=== PATIENT | male | born 1985 | race Caucasian/White ===

== ENCOUNTER 2022-04-03 17:08 | Emergency (ER) | payer OTHER, SELFPAY ==
[2022-04-03 17:35] VITALS: BP 121/85; PULSE 98; RESP 18; TEMP 36.9; O2SAT 97
--- NOTE | 2022-04-03 21:40 | W.ED.GENADLT ---
Documented by User: Juan Jose Figueroa MD 04/03/22 22:34 HPI - General Adult General: Chief complaint: Fall Stated complaint: Fell off ladder, Back pain Time Seen by Provider: 04/03/22 21:30 History of Present Illness: Patient is a 36-year-old male who fell from 4 feet of ladder presents the emergency room after falling from a ladder about 4 feet high. Patient reports he really landed on his right side. Patient noted minor bleeding over the right anterior ortega. Patient was right ankle, right leg, right knee, right elbow, forearm and rib area pain. Patient denies LOC or anticoagulation. No nausea/vomiting, fever/chill, chest pain, shortness of breath, abdominal pain, dysuria/hematuria/polyuria, diarrhea/melena/hematochezia. Patient tells me that he is up-to-date with his tetanus vaccines. Onset:4pm Duration:ongoing Location:home Severity:moderate Associated symptoms: Reports chest pain (+R sided rib pain); Deny dyspnea, nausea, rash, palpitations or vomiting Review of Systems Const: Denies: fever(s) or chills Eyes: Denies: change in vision ENMT: Denies: mouth pain Card: Reports: chest pain (+R sided rib pain); Denies: palpitations Resp: Denies: dyspnea or non-productive cough GI: Denies: abdominal pain, nausea, vomiting or diarrhea : Denies: dysuria Musc: Reports: extremity pain (+ Right knee, right leg, right ankle, right elbow, right forearm, right rib) Skin/Breast: Denies: rash or new lesions Neuro: Denies: weakness in extremities Psych: Reports: other (Normal mood) Bobby/Lymph: Denies: easy bruising PFSH ED PFSH: Medical History No pertinent past medical history Social History Smoking and tobacco status: never smoked Alcohol intake: never Substance/Drug Use: never Physical Exam Const: COMMON NORMALS: alert HENMT: COMMON NORMALS: atraumatic HEAD & SCALP: atraumatic MOUTH: moist mucous membranes not abnormal Eye: COMMON NORMALS: EOMs intact bilaterally and conjunctivae normal CONJUNCTIVA: Yes conjunctivae normal Neck/C-Spine: COMMON NORMALS: full ROM and supple Resp: COMMON NORMALS: normal respiratory effort and clear to auscultation bilaterally AUSCULTATION: clear to auscultation bilaterally Cardio: COMMON NORMALS: regular rate RATE: regular rate GI: COMMON NORMALS: Soft to palpation and non-tender PALPATION: Yes Soft to palpation Extremity: COMMON NORMALS: full ROM Neuro: SENSORIUM/ORIENTATION: Yes alert MOTOR EXAM: No Abnormal motor strength present and Other motor observations present (no focal motor deficits) Psych: COMMON NORMALS: speech normal SPEECH: Yes normal speech MOOD & AFFECT: Yes euthymic mood Course Vital Signs: Vital signs: Vital Signs Temperature 98.5 F 04/03/22 17:35 Pulse Rate 98 04/03/22 17:35 Respiratory Rate 18 04/03/22 17:35 Blood Pressure 121/85 04/03/22 17:35 Pulse Oximetry 97 04/03/22 17:35 MDM - General Adult Lab Data Radiology Impressions Ankle X-Ray 04/03/22 21:41 IMPRESSION: Distal Achilles tendon degenerative calcification. Chest X-Ray 04/03/22 21:41 IMPRESSION: 1. Negative for infiltrate. 2. Left mid lung 9.5 mm pulmonary nodule, dedicated nonemergent chest CT advised for further evaluation. Elbow X-Ray 04/03/22 21:41 IMPRESSION: Small joint effusion suspected, which can be associated with an occult radial head fracture, no fracture is seen on this exam, a CT could further evaluate this. Knee X-Ray 04/03/22 21:41 IMPRESSION: 1. Two orthopedic screws seen in the proximal tibial metaphysis. 2. Moderate tricompartmental osteoarthritis of the knee. Ribs X-Ray 04/03/22 21:41 IMPRESSION: No acute findings. Foot X-Ray 04/03/22 21:57 IMPRESSION: No acute findings. Forearm X-Ray 04/03/22 21:57 IMPRESSION: Radial head comminuted mildly displaced fracture. Tibia/Fibula X-Ray 04/03/22 21:57 IMPRESSION: Two orthopedic screws seen in the proximal tibial metaphysis. Discharge Plan Discharge Patient Disposition: Home Clinical Impression: Fall Closed fracture of radial head Qualifiers: Encounter type: initial encounter Fracture alignment: nondisplaced Laterality: right Qualified Code(s): S52.124A - Nondisplaced fracture of head of right radius, initial encounter for closed fracture Condition: Stable Prescriptions: New hydrocodone-acetaminophen 5-325 mg tablet 1 tab PO Q8H PRN (Reason: pain (scale score 7-10)) Qty: 7 0RF Discharge Orders: Discharge ED (Routine); Ordered 04/03/22 Ordered By: John Vickers Discharge Diet: Advance as tolerated Discharge Activity: Increase activity as tolerated Patient Instructions: Fall Prevention (ED) Activity Restrictions/Additional Instructions: Home and rest. Use sling for comfort. Acetaminophen and ibuprofen for pain. Activity as tolerated. Follow-up with orthopedist of choice when you return home to [place] for further evaluation and treatment. Use ice packs for further comfort. Return to ER for new concerns. Follow-up with primary care for abnormal chest x-ray. Stand Alone Forms: Work/School Release Coding Level of Care Code ED Compound Machine Operator for Chg Fwd Exam Comprehensive Documented by User: LUISA Iraheta 04/04/22 00:07 HPI - General Adult General: Chief complaint: Fall Stated complaint: Fell off ladder, Back pain Time Seen by Provider: 04/03/22 21:30 [facility] ED PFSH: Medical History No pertinent past medical history Social History Smoking and tobacco status: never smoked Alcohol intake: never Substance/Drug Use: never Course Vital Signs: Vital signs: Vital Signs Temperature 98.5 F 04/03/22 17:35 Pulse Rate 98 04/03/22 17:35 Respiratory Rate 18 04/03/22 17:35 Blood Pressure 121/85 04/03/22 17:35 Pulse Oximetry 97 04/03/22 17:35 MDM - General Adult Medical Decision Making 36-year-old male patient comes in today after falling off a ladder while at work. 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 Patient complained of right elbow and chest discomfort. Respirations were even lungs were clear to auscultation. Abdomen soft nontender. Tenderness was noted to the elbow with inability to straighten due to pain. I received this patient from Dr. Figueroa while we were awaiting final x-ray results. X-rays were noted to have no abnormalities except for a mildly displaced radial head fracture. There was also incidental finding of abnormality of the chest x-ray. Patient was recommended to follow-up with orthopedist for further evaluation. Also recommended patient follow-up with his primary care regarding abnormality on chest film. Lab Data Radiology Impressions Ankle X-Ray 04/03/22 21:41 IMPRESSION: Distal Achilles tendon degenerative calcification. Chest X-Ray 04/03/22 21:41 IMPRESSION: 1. Negative for infiltrate. 2. Left mid lung 9.5 mm pulmonary nodule, dedicated nonemergent chest CT advised for further evaluation. Elbow X-Ray 04/03/22 21:41 IMPRESSION: Small joint effusion suspected, which can be associated with an occult radial head fracture, no fracture is seen on this exam, a CT could further evaluate this. Knee X-Ray 04/03/22 21:41 IMPRESSION: 1. Two orthopedic screws seen in the proximal tibial metaphysis. 2. Moderate tricompartmental osteoarthritis of the knee. Ribs X-Ray 04/03/22 21:41 IMPRESSION: No acute findings. Foot X-Ray 04/03/22 21:57 IMPRESSION: No acute findings. Forearm X-Ray 04/03/22 21:57 IMPRESSION: Radial head comminuted mildly displaced fracture. Tibia/Fibula X-Ray 04/03/22 21:57 IMPRESSION: Two orthopedic screws seen in the proximal tibial metaphysis. Discharge Plan Discharge Patient Disposition: Home Clinical Impression: Fall Closed fracture of radial head Qualifiers: Encounter type: initial encounter Fracture alignment: nondisplaced Laterality: right Qualified Code(s): S52.124A - Nondisplaced fracture of head of right radius, initial encounter for closed fracture Condition: Stable Prescriptions: New hydrocodone-acetaminophen 5-325 mg tablet 1 tab PO Q8H PRN (Reason: pain (scale score 7-10)) Qty: 7 0RF Discharge Orders: Discharge ED (Routine); Ordered 04/03/22 Ordered By: John Vickers Discharge Diet: Advance as tolerated Discharge Activity: Increase activity as tolerated Patient Instructions: Fall Prevention (ED) Activity Restrictions/Additional Instructions: Home and rest. Use sling for comfort. Acetaminophen and ibuprofen for pain. Activity as tolerated. Follow-up with orthopedist of choice when you return home to [place] for further evaluation and treatment. Use ice packs for further comfort. Return to ER for new concerns. Follow-up with primary care for abnormal chest x-ray. Stand Alone Forms: Work/School Release Coding Level of Care Code ED Compound Machine Operator for Leoncio Fwd Exam Comprehensive
--- NOTE | 2022-04-03 21:41 | XRR_ITS ---
PROCEDURE INFORMATION: Exam: XR Right Ankle Exam date and time: 04/03/2022 10:18 PM Age: 36 years old Clinical indication: Pain; Ankle; Right; Additional info: R ankle pain TECHNIQUE: Imaging protocol: Radiologic exam of the Right ankle. Views: 3 or more views. COMPARISON: CR (LOW EXM, ) 04/03/2022 10:15 PM FINDINGS: Bones/joints: Normal. Soft tissues: Distal Achilles tendon degenerative calcification. XR/XR ankle RT min 3V* [id number] IMPRESSION: Distal Achilles tendon degenerative calcification.
--- NOTE | 2022-04-03 21:41 | XRR_ITS ---
PROCEDURE INFORMATION: Exam: XR Right Ribs Exam date and time: 04/03/2022 10:00 PM Age: 36 years old Clinical indication: Chest wall pain; Right; Additional info: R rib pain TECHNIQUE: Imaging protocol: Radiologic exam of the Right ribs. Views: 2 views. COMPARISON: CR (CHEST, ) 04/03/2022 9:51 PM FINDINGS: Bones/joints: Normal. Soft tissues: Normal. XR/XR ribs RT 2V* [id number] IMPRESSION: No acute findings.
--- NOTE | 2022-04-03 21:41 | XRR_ITS ---
PROCEDURE INFORMATION: Exam: XR Right Elbow Exam date and time: 04/03/2022 10:05 PM Age: 36 years old Clinical indication: Pain; Elbow; Right; Additional info: R elbow pain TECHNIQUE: Imaging protocol: Radiologic exam of the Right elbow. Views: 1 or 2 views. COMPARISON: No relevant prior studies available. FINDINGS: Bones/joints: Small joint effusion suspected, which can be associated with an occult radial head fracture, no fracture is seen on this exam, a CT could further evaluate this. Soft tissues: Normal. XR/XR elbow RT 2V [id number] IMPRESSION: Small joint effusion suspected, which can be associated with an occult radial head fracture, no fracture is seen on this exam, a CT could further evaluate this.
--- NOTE | 2022-04-03 21:41 | XRR_ITS ---
PROCEDURE INFORMATION: Exam: XR Chest Exam date and time: 04/03/2022 9:51 PM Age: 36 years old Clinical indication: Angina; Additional info: Chest pain TECHNIQUE: Imaging protocol: Radiologic exam of the chest. Views: 1 view. COMPARISON: No relevant prior studies available. FINDINGS: Lungs: Left mid lung 9.5 mm pulmonary nodule, dedicated nonemergent chest CT advised for further evaluation. Pleural spaces: Unremarkable. No pleural effusion. No pneumothorax. Heart/Mediastinum: Unremarkable. No cardiomegaly. Bones/joints: Unremarkable. XR/XR chest 1V portable [id number] IMPRESSION: 1. Negative for infiltrate. 2. Left mid lung 9.5 mm pulmonary nodule, dedicated nonemergent chest CT advised for further evaluation.
--- NOTE | 2022-04-03 21:41 | XRR_ITS ---
PROCEDURE INFORMATION: Exam: XR Right Knee Exam date and time: 04/03/2022 10:08 PM Age: 36 years old Clinical indication: Pain; Knee; Right; Additional info: R knee pain TECHNIQUE: Imaging protocol: Radiologic exam of the Right knee. Views: 1 or 2 views. COMPARISON: No relevant prior studies available. FINDINGS: Bones/joints: Two orthopedic screws seen in the proximal tibial metaphysis. Moderate tricompartmental osteoarthritis of the knee. Soft tissues: Normal. XR/XR knee RT 1-2V [id number] IMPRESSION: 1. Two orthopedic screws seen in the proximal tibial metaphysis. 2. Moderate tricompartmental osteoarthritis of the knee.
--- NOTE | 2022-04-03 21:57 | XRR_ITS ---
PROCEDURE INFORMATION: Exam: XR Right Forearm Exam date and time: 04/03/2022 10:19 PM Age: 36 years old Clinical indication: Pain; Lower or forearm; Right TECHNIQUE: Imaging protocol: Radiologic exam of the Right forearm. Views: 2 views. COMPARISON: CR (UP EXM, ) 04/03/2022 10:05 PM FINDINGS: Bones/joints: Radial head comminuted mildly displaced fracture. Soft tissues: Normal. XR/XR forearm RT 2V [id number] IMPRESSION: Radial head comminuted mildly displaced fracture.
--- NOTE | 2022-04-03 21:57 | XRR_ITS ---
PROCEDURE INFORMATION: Exam: XR Right Tibia and Fibula Exam date and time: 04/03/2022 10:11 PM Age: 36 years old Clinical indication: Pain; Lower leg; Right TECHNIQUE: Imaging protocol: Radiologic exam of the Right tibia and fibula. Views: 2 views. COMPARISON: CR (LOW EXM, ) 04/03/2022 10:08 PM FINDINGS: Bones/joints: Two orthopedic screws seen in the proximal tibial metaphysis. Soft tissues: Normal. XR/XR tibia fibula RT 2V [id number] IMPRESSION: Two orthopedic screws seen in the proximal tibial metaphysis.
--- NOTE | 2022-04-03 21:57 | XRR_ITS ---
PROCEDURE INFORMATION: Exam: XR Right Foot Exam date and time: 04/03/2022 10:15 PM Age: 36 years old Clinical indication: Pain; Foot; Right; Additional info: R foot pain TECHNIQUE: Imaging protocol: Radiologic exam of the Right foot. Views: 1 or 2 views. COMPARISON: CR (LOW EXM, ) 04/03/2022 10:11 PM FINDINGS: Bones/joints: Normal. Soft tissues: Normal. XR/XR foot RT 2V [id number] IMPRESSION: No acute findings.
[2022-04-03] MEDS: ketorolac 30 mg/mL INJ IM (22:38)
[2022-04-03] MEDS: morphine 4 mg/mL SDV 1 mL IM (22:38)
[2022-04-04 00:20] VITALS: BP 130/80; PULSE 92; RESP 18; TEMP 36.9; O2SAT 98
--- NOTE | 2022-04-04 14:58 | DCPLANNER ---
Addendum entered by Dory Li 04/12/22 10:09: late entry - case management specialist was notified by ortho that patient wants to be seen in [place], case management specialist attempted to call patient to speak with patient about referral - unable to speak with patient at this time. Original Note: learning and development manager had message to schedule a follow up appointment for patient with ortho. learning and development manager sent patients information to the front office staff at ortho. Patients information will be printed and reviewed. Clinic will call patient with appointment information.
== END 2022-04-04 00:23 | disposition home or self-care (01) ==
PROVIDERS: Emergency Provider Nurse Practitioner Family
DX: S52.124A Nondisplaced fracture of head of right radius, initial encounter for closed fracture (principal); W11.XXXA Fall on and from ladder, initial encounter
CPT/HCPCS: 71045; 71100; 73070; 73090; 73560; 73590; 73610; 73620; 96372; 99284; J1885; J2270